=== PATIENT | female | born 1995 | race Caucasian/White ===

== ENCOUNTER 2021-12-08 12:28 | Emergency (ER) | payer OTHER, SELFPAY ==
[2021-12-08 12:47] VITALS: BP 121/78; PULSE 67; RESP 16; TEMP 36.7; O2SAT 99
--- NOTE | 2021-12-08 13:20 | ED.FEMALEGU ---
HPI - Female Genitourinary General Chief complaint: Urogenital-Female Stated complaint: uti Time Seen by Provider: 12/08/21 13:10 Source: patient, RN notes reviewed and old records reviewed Mode of arrival: ambulatory Limitations: no limitations History of Present Illness HPI Narrative: 26 year old female who presents to [facility] care with complaints of stabbing lower back pain yesterday intermittently at work associated with some nausea, denies any abdominal pain at time of back discomfort. Patient reports lower back pain today described as ache. Patient denies any pain or burning with urination or visible blood, patient denies any vaginal discharge or itching. Patient reports that she took some cranberry pills last night. Patient denies any know fevers, states some chills during the night with body aches with concern for UTI with her history of past UTI's. MD elicited complaint: UTI and back pain Pertinent past history: other (UTI) Onset (ago): day(s) (1yesterday) Location of symptoms: low back Severity: mild Severity scale (1-10): 3 Quality of pain: aching Related Data Allergies Allergy/AdvReac Type Severity Reaction Status Date / Time No Known Allergies Allergy Verified 12/08/21 12:50 Review of Systems Review of Systems: CONSTITUTIONAL: Denies fever,with episode of chills during the night, no sweats. EYES: Denies visual changes, redness, or discharge. ENT: Denies rhinorrhea, congestion, sore throat, or otalgia. CARDIOVASCULAR: Denies chest pain, palpitations, or edema. RESPIRATORY: Denies cough or dyspnea. GASTROINTESTINAL: Denies abdominal pain,some nausea yesterday none presently, no vomiting, or diarrhea. GENITOURINARY: Denies dysuria or hematuria. SKIN: Denies rash or itching. MUSCULOSKELETAL: Positive for low back pain,no joint pain,positive body aches during night NEUROLOGIC: Denies headache, numbness, or weakness. PSYCHIATRIC: Denies anxiety or depression. All systems reviewed & are unremarkable except as noted in HPI and below PMFSH Past Medical History Medical History (Updated 12/08/21 @ 14:25 by Yudelka Quintana NP) UTI (urinary tract infection) Surgical History Surgical History (Updated 12/08/21 @ 14:25 by Yudelka Quintana NP) History of placement of ear tubes History of tonsillectomy Family History Family History Sibling Family history of mental disorder Grandparent Hypertension Family history of type 2 diabetes mellitus Family history of pulmonary embolism Social History Social History Smoking status: Never smoker Second hand tobacco smoke exposure: No Alcohol intake: never Comments At time of signature, agree with nursing past medical, surgical, social and family history. There is no relevant family history pertinent to the presenting complaint Exam Narrative: GENERAL: Well-appearing, well-nourished, and in no acute distress. HEAD: Normocephalic, atraumatic. EYES: PERRLA and EOMI. ENT: Nares clear, no rhinorrhea or epistaxis. Mucous membranes moist.TM's normal with good light reflex, throat pink with no lesions or exudates no swelling NECK: Supple.no lymphadenopathy CHEST: Clear to auscultation. No respiratory distress.SAO2 99% on room air HEART: Regular rate and rhythm. No murmur heard. Normal peripheral pulses. ABDOMEN: Soft, nontender, nondistended, normal active bowel sounds. EXTREMITIES: Normal range of motion. No edema. intermittent achy lower back pain today with no radiation or pain or any present nausea, chills or body aches, denies any present burning with urination or any visible hematuria. SKIN: Warm, dry, no rash. NEURO: No focal deficits. Alert and oriented x3. Course Course Level of Care: Express Care Visit Vital Signs Vital signs: Vital Signs Temperature 36.7 C 12/08/21 12:47 Pulse Rate 67 12/08/21 12:47 Respiratory Rate 16 12/08/21 12
== END 2021-12-08 13:45 | disposition home or self-care (01) ==
PROVIDERS: Emergency Provider Registered Nurse; PCP Family Medicine
DX: N39.0 Urinary tract infection, site not specified (principal); M54.50 Low back pain, unspecified
CPT/HCPCS: 81003; 87086; 99213; G0463